=== PATIENT | male | born 1955 | race Caucasian/White ===

== ENCOUNTER 2016-07-02 10:01 | Emergency (ER) | payer OTHER ==
[~2016-07-02] VITALS: Wt 100.0 kg
[~2016-07-02 10:01] MED LIST: IBUP400T22 PO; MECL-77 PO
[2016-07-02] MEDS ORDERED: PRED20TA PO (11:44)
[2016-07-02] MEDS ORDERED: AZIT250T94 PO (11:44)
[2016-07-02] MEDS ORDERED: IBUP-1542 PO (11:45)
--- NOTE | 2016-07-02 11:49 | ERD ---
ER Documentation Chief Complaint Date/Time DATE: 07/02/16 TIME: 11:47 Chief Complaint R EAR PAIN FOR ABOUT A WEEK. NO FEVERS OR SORE THROAT HPI This 7-year-old male who has right ear pain and decreased hearing for last week. He might have some white his ear. He does have mild cough for sensation of wheezing but usually only at night. Denies bleeding or discharge. ROS All systems reviewed and are negative except as per history of present illness. Medications Home Meds Active Scripts Ibuprofen* (Motrin*) 600 Mg Tab, 600 MG PO Q6H Y for PAIN AND OR ELEVATED TEMP, #30 TAB Prov:DONNY FARMER MD 07/02/16 Prednisone* (Prednisone*) 20 Mg Tab, 40 MG PO DAILY for 4 Days, TAB Prov:DONNY FARMER MD 07/02/16 Azithromycin* (Zithromax*) 250 Mg Tablet, 250 MG PO .ZPACK DIRECTED, #6 TAB TAKE 500 MG (2 TABS) THE FIRST DAY THEN 250 MG (1 TAB) DAYS 2-5 Prov:DONNY FARMER MD 07/02/16 Meclizine Hcl* (Meclizine Hcl*) 25 Mg Tablet, 25 MG PO BID Y for DIZZINESS for 15 Days, #30 TAB 0 Refills Prov:ANGELO ALFARO PA-C 12/26/15 Ibuprofen* (Motrin*) 400 Mg Tab, 400 MG PO Q6 for 7 Days, #30 TAB 0 Refills Prov:ANGELO ALFARO PA-C 12/26/15 Allergies Allergies: Coded Allergies: No Known Allergy (Unverified , 12/29/15) PMhx/Soc Hx Alcohol Use: No Hx Substance Use: No Hx Tobacco Use: No Physical Exam Vitals Vital Signs Date Time Temp Pulse Resp B/P Pulse Ox O2 Delivery O2 Flow Rate FiO2 07/02/16 10:05 98.5 73 21 150/81 98 Physical Exam Const: [] Alert, not ill-appearing. Head: Atraumatic Eyes: Normal Conjunctiva ENT: Normal External Ears, Nose and Mouth. There is no reproducible tenderness or pain with passive range of motion of the ear. There is some opaque fluid bilaterally with some slight redness. No appreciable TMJ or bruits. Oropharynx normal. Neck: Full range of motion..~ No meningismus. Resp: Clear to auscultation bilaterally Cardio: Regular rate and rhythm, no murmurs Abd: Soft, non tender, non distended. Normal bowel sounds Skin: No petechiae or rashes Back: No midline or flank tenderness Ext: No cyanosis, or edema Neur: Awake and alert Psych: Normal Mood and Affect Procedures/MDM Patient presents with right ear discomfort decreased hearing and signs of eustachian tube dysfunction or otitis media. No evidence of mastoiditis, signs of meningitis or other emergent causes of her discomfort. She with Zithromax, short course prednisone and ibuprofen. Patient is advised to follow-up with his primary doctor this week or return to the ER for new or worsening symptoms.The patient was stable with no new complaints during the ER course. Clinically, there is no current evidence to suggest meningitis, sepsis, acute abdomen, pneumonia, acute coronary syndrome, pulmonary embolism, or any other emergent condition appearing to require further evaluation or hospitalization. The patient should certainly return for any new or worsening symptoms per the aftercare instructions. They should otherwise follow-up with her primary care doctor for reevaluation this week. Departure Diagnosis: Primary Impression: Otitis media Otitis media type: suppurative Laterality: right Chronicity: acute Recurrence: not specified as recurrent Spontaneous tympanic membrane rupture: without spontaneous rupture Qualified Code: H66.001 - Acute suppurative otitis media of right ear without spontaneous rupture of tympanic membrane, recurrence not specified Additional Impression: Right ear pain Condition: Stable Patient Instructions: Otitis Media, Abx Tx (Adult) Additional Instructions: We'll treat for infection or clot eustachian tube was likely source of symptoms. Recheck with primary doctor or for new or worsening symptoms. DONNY FARMER MD Jul 02, 2016 11:49
== END 2016-07-02 12:12 | disposition home or self-care (01) ==
LOC: FTE 10:01
DX: H66.001 Acute suppurative otitis media without spontaneous rupture of ear drum, right ear (principal)
CPT/HCPCS: 99284

== ENCOUNTER 2016-09-30 06:54 | Emergency (ER) | payer OTHER ==
[~2016-09-30] VITALS: Ht 162.6 cm; Wt 115.5 kg
[~2016-09-30 06:54] MED LIST changes: +AZIT250T94 PO; +IBUP-1542 PO; +PRED20TA PO
[2016-09-30 06:56] VITALS: Ht 162.6 cm; Wt 115.5 kg
[2016-09-30] MEDS ORDERED: ALBUTEROL 0.083% (NEB) 2.5 MG/3 ML AMP NEB STA (07:20)
--- NOTE | 2016-09-30 08:29 | RADRPT ---
PROCEDURE: Chest Radiograph. CLINICAL INDICATION: Asthma exacerbation. TECHNIQUE: Single frontal chest radiograph. COMPARISON: None available FINDINGS: The cardiomediastinal silhouette is within normal limits. No infiltrate or effusion is seen. Th e bones are intact. IMPRESSION: 1. Unremarkable chest radiograph. RPTAT: AA .Musa Kelsey MD, MD Date Time Electronically viewed and signed by .Musa Kelsey MD, on 09/30/2016 08:29 .B/
[2016-09-30] MEDS ORDERED: BENZ100C70 PO (08:34)
[2016-09-30] MEDS ORDERED: ALBU8.5H3 INH (08:34)
[2016-09-30] MEDS ORDERED: DEXAMETHASONE 10 MG/ML 1 ML INJ IM ONE (09:00)
--- NOTE | 2016-09-30 09:05 | ERD ---
ER Documentation Chief Complaint Date/Time DATE: 09/30/16 TIME: 09:02 Chief Complaint cough x 4 days, stuffy nose HPI This is a 61-year-old male presenting to the emergency department complaining of cough and nasal congestion for the past 4 days. Patient states that the cough is around moderate in severity. He states is constant. He denies any chest pain or shortness of breath. Patient states he took ibuprofen last night without any relief. He denies any medical problems including diabetes. ROS All systems reviewed and are negative except as per history of present illness. Medications Home Meds Active Scripts Benzonatate* (Tessalon Perle*) 100 Mg Capsule, 100 MG PO Q8H Y for COUGH, #20 CAP Prov:SPENCER GARRISON PA-C 09/30/16 Albuterol Sulfate* (Proair HFA*) 8.5 Gm Hfa.aer.ad, 2 PUFF INH Q4, #1 INHALER Prov:SPENCER GARRISON PA-C 09/30/16 Ibuprofen* (Motrin*) 600 Mg Tab, 600 MG PO Q6H Y for PAIN AND OR ELEVATED TEMP, #30 TAB Prov:DONNY FARMER MD 07/02/16 Prednisone* (Prednisone*) 20 Mg Tab, 40 MG PO DAILY for 4 Days, TAB Prov:DONNY FARMER MD 07/02/16 Azithromycin* (Zithromax*) 250 Mg Tablet, 250 MG PO .ZPACK DIRECTED, #6 TAB TAKE 500 MG (2 TABS) THE FIRST DAY THEN 250 MG (1 TAB) DAYS 2-5 Prov:DONNY FARMER MD 07/02/16 Meclizine Hcl* (Meclizine Hcl*) 25 Mg Tablet, 25 MG PO BID Y for DIZZINESS for 15 Days, #30 TAB 0 Refills Prov:ANGELO ALFARO PA-C 12/26/15 Ibuprofen* (Motrin*) 400 Mg Tab, 400 MG PO Q6 for 7 Days, #30 TAB 0 Refills Prov:ANGELO ALFARO PA-C 12/26/15 Allergies Allergies: Coded Allergies: No Known Allergy (Unverified , 09/30/16) PMhx/Soc History of Surgery: Yes (appendectomy; hernia surgery) Anesthesia Reaction: No Hx Neurological Disorder: No Hx Respiratory Disorders: No Hx Cardiac Disorders: No Hx Psychiatric Problems: No Hx Miscellaneous Medical Probl: Yes (Ear pain; pre diabetic) Hx Alcohol Use: No Hx Substance Use: No Hx Tobacco Use: No Smoking Status: Never smoker Physical Exam Vitals Vital Signs Date Time Temp Pulse Resp B/P Pulse Ox O2 Delivery O2 Flow Rate FiO2 09/30/16 07:43 68 18 95 21 09/30/16 06:56 97.3 82 18 160/90 96 Physical Exam GENERAL: WD/WN, in no apparent distress, non-toxic appearing HENT: NC/AT, bilateral TM has good cone of light EYES: Conjunctiva normal NECK: Supple PULM: Mild wheezing. No rales, crackles, or rhonchi heard. No tripod position, normal labored breathing, no stridor, no evidence of using accessory muscles. CV: Good capillary refill, good S1 and S2, no murmurs appreciated GI: Non-distended, no guarding BACK: No masses. EXT: No clubbing, cyanosis, or edema. NEURO: Moves on all fours SKIN: intact, no cyanosis. PSYCH: Normal mood Results 24 hrs Current Medications Medications (Trade) Dose Ordered Sig/Rose Route PRN Reason Start Time Stop Time Status Last Admin Dose Admin Albuterol (Proventil 0.083% (Neb)) 5 mg ONCE STAT NEB 09/30/16 07:20 09/30/16 07:21 DC 09/30/16 07:41 Dexamethasone (Decadron) 10 mg ONCE ONCE IM 09/30/16 09:00 09/30/16 09:01 DC Procedures/MDM This is a 7-year-old male presenting to the emergency department complaining of cough and nasal congestion for the last 4 days which is likely due to a viral upper respiratory infection with mild wheezing. There was no evidence of pneumonia, respiratory distress, pleural effusion, pneumothorax, bacterial sinusitis, strep pharyngitis. In the ED patient was given 5 mg of albuterol and 10 mg of Decadron. I have reassessed patient and he significantly feels better. Patient is suitable for discharge with prescription for albuterol. I discussed with patient to return to the emergency department for any worsening signs or symptoms. Patient understands and agrees with this plan. Chest X-ray 1V Interpreted by me: Soft Tissue: No acute abnormalities Bones: No acute abnormalities Mediastinum/Cardiac Silhouette/Lungs: [No acute abnormalities] Departure Diagnosis: Primary Impression: Bronchitis Additional Impression: Wheezing Condition: Stable Patient Instructions: Bronchitis With Wheezing (Adult) Additional Instructions: Visite a sanchez robert garcia para un EXAMEN.Regrese a estas instalaciones si no se mejora jonny esperbamos o jonny le dijimos. [place] toda la medicina yris y jonny se le indic. Regrese a estas instalaciones si no se mejora jonny esperbamos o jonny le dijimos. SPENCER GARRISON PA-C Sep 30, 2016 09:05
[2016-09-30 09:53] VITALS: BP 126/77; PULSE 74; RESP 19; TEMP 98.5
== END 2016-09-30 09:54 | disposition home or self-care (01) ==
LOC: FTE 06:54
DX: J40 Bronchitis, not specified as acute or chronic (principal); R06.2 Wheezing
CPT/HCPCS: 71010; 94664; J1100; Z7610; 96372

== ENCOUNTER 2017-12-07 21:21 | Emergency (ER) | END 2017-12-08 04:00 | disposition home or self-care (01) ==

== ENCOUNTER 2018-03-01 23:06 | Emergency (ER) | END 2018-03-02 04:47 | disposition home or self-care (01) ==